=== PATIENT | female | born 1980 | race Caucasian/White ===

== ENCOUNTER 2018-09-18 15:49 | Emergency (ER) | payer OTHER ==
[~2018-09-18] VITALS: Ht 152.4 cm; Wt 77.1 kg
[~2018-09-18 15:49] MED LIST: ANAPROX DS550 MG PO; BUSPAR5 MG PO; CYCLOBENZAPRINE10 MG PO; GAVISCON; KEFLEX500 MG PO; MOTRIN800 MG PO; Motrin,Rufen800 MG PO; NEXIUM40 MG PO; PEN-VEE K500 MG PO; PROAIR HFA0.09 MG/AC IH; PROAIR HFA8.5 GM INH; SKELAXIN800 MG PO; Synthroid,Levo25 MCG PO; TRAMADOL50 MG PO; VICODIN 5/500 505 MG PO
[2018-09-18 15:51] VITALS: BP 127/92
[2018-09-18] MEDS ORDERED: PREDNISONE20 M1 PO (17:27)
== END 2018-09-18 17:38 | disposition home or self-care (01) ==
LOC: ED 15:49
DX: L25.9 Unspecified contact dermatitis, unspecified cause (principal); J02.9 Acute pharyngitis, unspecified; Z79.899 Other long term (current) drug therapy

== ENCOUNTER → 2018-12-01 | Outpatient (CLI) | payer OTHER ==
[~2018-12-01] MED LIST changes: +PREDNISONE20 M1 PO
== END | disposition home or self-care (01) ==
LOC: ORTHO 00:08
DX: S92.425D Nondisplaced fracture of distal phalanx of left great toe, subsequent encounter for fracture with routine healing (principal); X58.XXXD Exposure to other specified factors, subsequent encounter

== ENCOUNTER → 2019-04-18 | Outpatient (CLI) | payer OTHER | END | disposition home or self-care (01) | LOC: RAD 13:11 | DX: M25.551 Pain in right hip (principal); M54.5 Low back pain ==

== ENCOUNTER → 2019-06-26 | Outpatient (CLI) | payer OTHER ==
[2019-06-26 14:26] LABS: BASO % 0.4 % (0.0-1.0); EOS # 0.1 10*3/uL (0.0-0.4); EOS % 0.6 % (1.0-4.0); HEMATOCRIT 43.7 % (37.0-47.0); HEMOGLOBIN 14.7 g/dl (12.0-16.0); LYMPH % 36.8 % (27.0-41.0); MEAN CELL VOLUME 93.2 fl (81.0-99.0); MEAN CORPUSCULAR HGB 31.3 pg (27.0-31.0); MEAN CORPUSCULAR HGB CONC 33.6 g/dl (33.0-37.0); MEAN PLATELET VOLUME 9.7 fl (9.6-12.3); MONO # 0.6 10*3/uL (0.1-1.0); MONO % 7.5 % (3.0-9.0); NEUT # 4.4 10*3/uL (2.3-7.9); NEUT % 53.9 % (47.0-73.0); PLATELET COUNT AUTOMATED 415 10*3/uL (130-400); RED BLOOD COUNT 4.69 10*6/uL (4.10-5.10); RED CELL DISTRI WIDTH 12.4 % (0-14.5); RETICULOCYTE % 1.48 % (0.50-2.50); WHITE BLOOD COUNT 8.2 10*3/uL (4.8-10.8)
[2019-06-26 14:30] LABS: BILIRUBIN NEGATIVE (NEGATIVE); BLOOD NEGATIVE (NEGATIVE); CLARITY SL CLOUDY (CLEAR); COLOR YELLOW (YELLOW); GLUCOSE NEGATIVE (NEGATIVE); KETONE TRACE (NEGATIVE); LEUKO ESTERASE NEGATIVE (NEGATIVE); NITRITE NEGATIVE (NEGATIVE); SPECIFIC GRAVITY 1.025 (1.005-1.030); UROBILINOGEN 0.2 E.U./dl (0.2-1.0)
[2019-06-26 14:42] LABS: ALBUMIN 4.2 gm/dl (3.1-4.5); BUN 8 mg/dl (7-24); CHLORIDE 108 mmol/L (98-107); CHOLESTEROL 254 mg/dL (<200); GAMMA GLUTAMYL TRANSPEPTIDASE 8 U/L (5-55); POTASSIUM 3.7 mmol/L (3.5-5.1); SODIUM 141 mmol/L (136-145)
[2019-06-26 14:45] LABS: ALKALINE PHOSPHATASE 60 U/L (45-117); IRON 83 ug/dL (50-170); SGOT/AST 17 IU/L (3-35); SGPT/ALT 22 U/L (12-78); THYROXINE (T4) TOTAL 6.4 ug/dl (4.8-13.9); TOTAL PROTEIN 7.6 gm/dL (6.4-8.2); TRIGLYCERIDES 132 mg/dl (<150); VLDL CHOLESTEROL 26 mg/dL (6-40)
[2019-06-26 14:53] LABS: HDL CHOLESTEROL 55 mg/dl (40-60); LDL CHOLESTEROL 173 mg/dL (9-159); T3 UPTAKE 33 % (31-39); TOTAL IRON BINDING CAPACITY 353 ug/dl (250-450)
[2019-06-26 15:09] LABS: VITAMIN D, 25-HYDROXY 23.6 ng/mL (30-100)
[2019-06-26 15:10] LABS: FERRITIN 16.1 ng/mL (10.0-291.0)
[2019-06-27 08:09] LABS: HEPATITIS B SURFACE AG Negative (Negative); HEPATITIS C VIRUS ANTIBODY <0.1 s/co (0.0-0.9)
[2019-06-27 10:05] LABS: AFP TUMOR MARKER 002253 2.7 ng/mL (0.0-8.3)
== END | disposition home or self-care (01) ==
LOC: LAB 13:45
PROVIDERS: Family Medicine
DX: E55.9 Vitamin D deficiency, unspecified (principal); R53.83 Other fatigue; R79.89 Other specified abnormal findings of blood chemistry

== ENCOUNTER 2019-07-07 09:20 | Emergency (ER) | payer OTHER ==
[~2019-07-07] VITALS: Ht 154.9 cm; Wt 77.1 kg
[2019-07-07 09:22] VITALS: BP 143/84
== END 2019-07-07 10:27 | disposition home or self-care (01) ==
LOC: ED 09:20
DX: S05.02XA Injury of conjunctiva and corneal abrasion without foreign body, left eye, initial encounter (principal); Z79.899 Other long term (current) drug therapy; W55.03XA Scratched by cat, initial encounter; Y93.89 Activity, other specified; Y92.89 Other specified places as the place of occurrence of the external cause; Y99.8 Other external cause status

== ENCOUNTER → 2019-08-10 | Outpatient (CLI) | payer OTHER | END | disposition home or self-care (01) | LOC: RAD 11:54 | DX: S76.011A Strain of muscle, fascia and tendon of right hip, initial encounter (principal); M43.06 Spondylolysis, lumbar region; X58.XXXA Exposure to other specified factors, initial encounter; Y93.89 Activity, other specified; Y92.89 Other specified places as the place of occurrence of the external cause; Y99.8 Other external cause status ==

== ENCOUNTER → 2020-09-19 | Outpatient (CLI) | payer OTHER ==
[2020-09-19 12:41] LABS: THYROXINE (T4) TOTAL 6.5 ug/dl (4.8-13.9)
[2020-09-19 12:46] LABS: THYROID STIM HORMONE (HS) 3.29 uIU/ml (0.358-4.75)
== END | disposition home or self-care (01) ==
LOC: LAB 12:04
PROVIDERS: Family Medicine; ATTEND Chiropractor Orthopedic
DX: M43.22 Fusion of spine, cervical region (principal); R53.83 Other fatigue; R79.89 Other specified abnormal findings of blood chemistry

== ENCOUNTER → 2020-12-11 | Outpatient (CLI) | payer OTHER ==
[2020-12-11 13:16] LABS: HEMATOCRIT 34.3 % (37.0-47.0); MEAN CORPUSCULAR HGB 30.2 pg (27.0-31.0); MEAN CORPUSCULAR HGB CONC 33.2 g/dl (33.0-37.0); MEAN PLATELET VOLUME 9.4 fl (9.6-12.3); PLATELET COUNT AUTOMATED 478 10*3/uL (130-400); RED BLOOD COUNT 3.77 10*6/uL (4.10-5.10); RED CELL DISTRI WIDTH 13.5 % (0-14.5); RETICULOCYTE % 1.58 % (0.50-2.50); WHITE BLOOD COUNT 8.9 10*3/uL (4.8-10.8)
[2020-12-11 13:16] LABS: BILIRUBIN Negative (Negative); BLOOD Negative (Negative); CLARITY Cloudy (Clear); COLOR Yellow (Yellow); GLUCOSE Negative (Negative); KETONE Negative (Negative); LEUKO ESTERASE Negative (Negative); NITRITE Negative (Negative); SPECIFIC GRAVITY 1.015 (1.001-1.030); UROBILINOGEN 0.2 E.U./dl (0.0-1.0)
[2020-12-11 13:35] LABS: ALBUMIN 3.7 gm/dl (3.1-4.5); ALKALINE PHOSPHATASE 54 U/L (45-117); BUN 7 mg/dl (7-24); CHLORIDE 110 mmol/L (98-107); CHOLESTEROL 235 mg/dL (<200); CREATININE 0.83 mg/dL (0.55-1.02); GAMMA GLUTAMYL TRANSPEPTIDASE 9 U/L (5-55); IRON 26 ug/dL (50-170); LDL CHOLESTEROL 165 mg/dL (9-159); POTASSIUM 3.4 mmol/L (3.5-5.1); SGOT/AST 13 IU/L (3-35); SGPT/ALT 17 U/L (12-78); SODIUM 135 mmol/L (136-145); T3 UPTAKE 32 % (31-39); THYROXINE (T4) TOTAL 7.3 ug/dl (4.8-13.9); TOTAL IRON BINDING CAPACITY 410 ug/dl (250-450); TOTAL PROTEIN 6.9 gm/dL (6.4-8.2); TRIGLYCERIDES 62 mg/dl (<150)
[2020-12-11 13:37] LABS: BACTERIA TRACE
[2020-12-11 13:42] LABS: TOTAL CELLS COUNTED 100 #CELLS
[2020-12-11 13:46] LABS: PLATELET SUFFICIENCY HIGH (NORMAL)
[2020-12-11 14:04] LABS: VITAMIN D, 25-HYDROXY 37.4 ng/mL (30-100)
[2020-12-11 14:05] LABS: FERRITIN 4.8 ng/mL (10.0-291.0)
[2020-12-12 05:07] LABS: TOTAL PROTEIN, SERUM 6.5 g/dL (6.0-8.5)
[2020-12-12 08:08] LABS: RHEUMATOID ARTHRITIS FACTOR <10.0 IU/mL (0.0-13.9)
[2020-12-12 14:08] LABS: ANTI-DSDNA ANTIBODIES 1 IU/mL (0-9)
[2020-12-12 15:07] LABS: A/G RATIO 1.5 (0.7-1.7); ALBUMIN 3.9 g/dL (2.9-4.4); ALPHA-1-GLOBULIN 0.2 g/dL (0.0-0.4); ALPHA-2-GLOBULIN 0.6 g/dL (0.4-1.0); BETA GLOBULIN 1.1 g/dL (0.7-1.3); GAMMA GLOBULIN 0.7 g/dL (0.4-1.8); GLOBULIN, TOTAL 2.6 g/dL (2.2-3.9); M-SPIKE Not Observed g/dL (Not Observed)
== END | disposition home or self-care (01) ==
LOC: LAB 12:31
PROVIDERS: ATTEND Family Medicine
DX: R53.83 Other fatigue (principal); R78.89 Finding of other specified substances, not normally found in blood; E78.5 Hyperlipidemia, unspecified; R74.8 Abnormal levels of other serum enzymes; E55.9 Vitamin D deficiency, unspecified

== ENCOUNTER 2022-11-07 20:49 | Emergency (ER) | payer OTHER ==
[~2022-11-07] VITALS: Ht 152.4 cm; Wt 77.1 kg
[2022-11-07] MEDS ORDERED: PROVENTIL HFA6.7 GM PO (21:02)
[2022-11-07] MEDS ORDERED: IBU800 M2 PO (21:02)
[2022-11-07 21:05] VITALS: BP 136/72
[2022-11-07] MEDS ORDERED: LEVOXYL75 MCG PO (21:06)
== END 2022-11-07 21:39 | disposition home or self-care (01) ==
LOC: ED 20:49
DX: S61.012A Laceration without foreign body of left thumb without damage to nail, initial encounter (principal); J45.909 Unspecified asthma, uncomplicated; M19.90 Unspecified osteoarthritis, unspecified site; Z98.51 Tubal ligation status; W26.9XXA Contact with unspecified sharp object(s), initial encounter; Y93.89 Activity, other specified; Y92.89 Other specified places as the place of occurrence of the external cause; Y99.8 Other external cause status